=== PATIENT | male | born 1990 | race Caucasian/White ===

== ENCOUNTER 2022-06-01 10:05 | Emergency (ER) | payer OTHER ==
[2022-06-01] MEDS ORDERED: ACETAMINOPHEN 325 MG TABLET (FP) PO ONE (10:20)
[2022-06-01 10:31] VITALS: BP 145/80; PULSE 72; RESP 19; TEMP 99.3; BMI 32.6
[2022-06-01] MEDS ORDERED: ACETAMINOPHEN 325 MG TABLET (FP) ONE (10:35)
== END 2022-06-01 11:19 | disposition home or self-care (01) ==
LOC: FER 10:05
DX: L03.116 Cellulitis of left lower limb (principal)
CPT/HCPCS: 73630-TC-LT; 99283-25

== ENCOUNTER 2022-06-03 16:50 | Emergency (ER) | payer OTHER ==
[2022-06-03 17:08] VITALS: BP 127/84; PULSE 100; RESP 16; TEMP 98.6; BMI 32.5
== END 2022-06-03 18:43 | disposition home or self-care (01) ==
LOC: FER 16:50
PROC: 0H9NXZZ Drainage of Left Foot Skin, External Approach (ICD-10-PCS; principal; 2022-06-03)
PROC: 3E0333Z Introduction of Anti-inflammatory into Peripheral Vein, Percutaneous Approach (ICD-10-PCS; 2022-06-03)
PROC: 3E033GC Introduction of Other Therapeutic Substance into Peripheral Vein, Percutaneous Approach (ICD-10-PCS; 2022-06-03)
DX: L02.612 Cutaneous abscess of left foot (principal)
CPT/HCPCS: 10060; 82962; 96374; 96375; 99283-25